=== PATIENT | female | born 1950 | race Caucasian/White ===

== ENCOUNTER 2016-12-16 19:00 | Emergency (ER) | payer MEDICARE, OTHER ==
[~2016-12-16] VITALS: Ht 162.6 cm; Wt 74.5 kg
[~2016-12-16 19:00] MED LIST: ALPR0.25 PO; SERT25TA83 PO; SMV40T PO; VALS320T11 PO; ZOLP10TA PO
[2016-12-16 19:07] VITALS: Ht 162.6 cm; Wt 74.5 kg
--- NOTE | 2016-12-16 21:27 | ERA ---
ER Documentation Chief Complaint Date/Time DATE: 12/16/16 TIME: 21:27 Chief Complaint epigastric pain x 5 days HPI The patient is a 66-year-old female, presenting to the ER because of epigastric abdominal pain radiating up to the sternal area for the last 5 days, associated with eating. She has similar symptoms previously, denies fever, chills, neck pain, chest pain, dyspnea, nausea, vomiting, dysuria, diarrhea. She does not smoke nor drink Past medical history: Dyslipidemia, anxiety, hypertension, gastritis, GERD, depression Past surgical history: None ROS All systems reviewed and are negative except as per history of present illness. Medications Home Meds Active Scripts Pantoprazole* (Protonix*) 40 Mg Tablet.dr, 40 MG PO DAILY, #20 TAB Prov:DINA JONES MD 12/16/16 Reported Medications Zolpidem Tartrate* (Ambien*) 10 Mg Tablet, 10 MG PO HS Y 01/29/13 Simvastatin (Simvastatin) 40 Mg Tablet, 40 MG PO DAILY 01/29/13 Alprazolam* (Xanax*) 0.25 Mg Tablet, 0.25 MG PO DAILY Y 01/29/13 Sertraline Hcl* (Sertraline Hcl*) 25 Mg Tablet, 25 MG PO DAILY 01/29/13 Valsartan* (Diovan*) 320 Mg Tablet, 320 MG PO DAILY 01/29/13 Allergies Allergies: Coded Allergies: No Known Allergies (Verified Allergy, Unknown, 01/29/13) PMhx/Soc History of Surgery: No Anesthesia Reaction: No Hx Neurological Disorder: No Hx Respiratory Disorders: No Hx Cardiac Disorders: Yes (htn, cholesterol) Hx Psychiatric Problems: No Hx Miscellaneous Medical Probl: No Hx Alcohol Use: No Hx Substance Use: No Hx Tobacco Use: No Physical Exam Vitals Vital Signs Date Time Temp Pulse Resp B/P Pulse Ox O2 Delivery O2 Flow Rate FiO2 12/16/16 22:01 97.8 75 20 108/78 100 Room Air 12/16/16 19:07 97.8 91 20 142/78 100 Physical Exam Const: No acute distress. Head: Atraumatic. Eyes: Normal Conjunctiva. ENT: Normal External Ears, Nose and Mouth. Neck: Full range of motion. No meningismus. Resp: Clear to auscultation bilaterally. Cardio: Regular rate and rhythm, no murmurs. Abd: Soft, non distended, normal bowel sounds, mild right upper quadrant and epigastric tenderness, no right lower quadrant, rigidity, rebound, CVA tenderness Skin: No petechiae or rashes. Back: No midline or flank tenderness. Ext: No cyanosis, or edema. Neur: Awake and alert. No focal deficit Psych: Normal Mood and Affect. Result Diagram: 12/16/16212812/16/162128 Results 24 hrs Laboratory Tests Test 12/16/16 21:29 12/16/16 21:31 White Blood Count 8.410^3/ul Red Blood Count 4.7310^6/ul Hemoglobin 13.9g/dl Hematocrit 42.0% Mean Corpuscular Volume 88.8fl Mean Corpuscular Hemoglobin 29.4pg Mean Corpuscular Hemoglobin Concent 33.1g/dl Red Cell Distribution Width 13.0% Platelet Count 65287^3/UL Mean Platelet Volume 11.9fl Neutrophils % 43.0% Lymphocytes % 45.3% Monocytes % 8.7% Eosinophils % 2.6% Basophils % 0.2% Nucleated Red Blood Cells % 0.0/100WBC Neutrophils # 3.610^3/ul Lymphocytes # 3.810^3/ul Monocytes # 0.710^3/ul Eosinophils # 0.210^3/ul Basophils # 0.010^3/ul Nucleated Red Blood Cells # 0.010^3/ul Sodium Level 137mmol/L Potassium Level 3.4mmol/L Chloride Level 96mmol/L Carbon Dioxide Level 27mmol/L Anion Gap 17 Blood Urea Nitrogen 13mg/dl Creatinine 0.67mg/dl Glucose Level 133mg/dl Calcium Level 9.6mg/dl Total Bilirubin 0.3mg/dl Direct Bilirubin 0.00mg/dl Indirect Bilirubin 0.3mg/dl Aspartate Amino Transf (AST/SGOT) 27IU/L Alanine Aminotransferase (ALT/SGPT) 43IU/L Alkaline Phosphatase 93IU/L Total Protein 8.1g/dl Albumin 4.6g/dl Globulin 3.50g/dl Albumin/Globulin Ratio 1.31 Lipase 40U/L Bedside Urine pH (LAB) 6.5 Bedside Urine Protein (LAB) Negative Bedside Urine Glucose (UA) Negative Bedside Urine Ketones (LAB) Negative Bedside Urine Blood Negative Bedside Urine Nitrite (LAB) Negative Bedside Urine Leukocyte Esterase (L Negative Current Medications Medications (Trade) Dose Ordered Sig/[place] Route PRN Reason Start Time Stop Time Status Last Admin Dose Admin Morphine Sulfate (morphine) 2 mg ONCE STAT IV 12/16/16 21:33 12/16/16 21:35 DC 12/16/16 21:41 Ondansetron HCl (Zofran Inj) 4 mg ONCE STAT IV 12/16/16 21:33 12/16/16 21:35 DC 12/16/16 21:40 Pantoprazole (Protonix Iv) 40 mg ONCE ONCE IV 12/16/16 22:00 12/16/16 22:01 DC 12/16/16 21:40 Potassium Chloride 20 meq 20 meq ONCE ONCE PO 12/16/16 22:56 12/16/16 22:57 DC Sodium Chloride (NS) 1,000 ml @ 1,000 mls/hr Q1H ONCE IV 12/16/16 23:00 12/16/16 23:59 Procedures/MDM MEDICAL MAKING DECISION: The patient is a 66-year-old female, presenting to the ER because of epigastric abdominal pain of unclear etiology, acute hypokalemia. Gallbladder ultrasound is unremarkable. She was treated with morphine 2 mg IV for pain, Zofran 4 mg IV for nausea, Protonix 40 mg IV for epigastric abdominal pain and potassium chloride 20 mEq p.o. for low potassium and 1 L normal saline for clinical dehydration with good response The radiologist gallbladder ultrasound reading is pending Departure Diagnosis: Primary Impression: Epigastric pain Additional Impression: Hypokalemia Condition: Good Comments She was discharged with Protonix I discussed the findings with the patient. I advised the patient to follow-up with the primary physician in about 1-2 days, sooner if needed and return if any concern. The patient's blood pressure was elevated (>120/80) but appears stable without evidence of hypertension emergency or urgency. The patient was counseled about the risks of hypertension and urged to pursue outpatient monitoring and therapy within a week with their primary care physician. DINA JONES MD December 16, 2016 21:27
[2016-12-16 21:30] LABS: URINE BLOOD (Dip) POC Negative (NEGATIVE)
[2016-12-16] MEDS ORDERED: morphine 2 MG INJ IV STA (21:33)
[2016-12-16] MEDS ORDERED: ONDANSETRON 4 MG INJ IV STA (21:33)
[2016-12-16 21:45] LABS: ADD SCAN DIFF NO
[2016-12-16 21:48] LABS: BASOPHILS % 0.2 % (0.0-2.0); EOSINOPHILS # 0.2 10^3/ul (0.0-0.5); EOSINOPHILS % 2.6 % (0.0-7.0); HEMOGLOBIN 13.9 g/dl (12.0-16.0); LYMPHOCYTES # 3.8 10^3/ul (0.8-2.9); LYMPHOCYTES % 45.3 % (15.0-51.0); MEAN CORPUSCULAR HEMOGLOBIN 29.4 pg (29.0-33.0); MEAN CORPUSCULAR HGB CONC 33.1 g/dl (32.0-37.0); MEAN CORPUSCULAR VOLUME 88.8 fl (82.0-101.0); MEAN PLATELET VOLUME 11.9 fl (7.4-10.4); MONOCYTE # 0.7 10^3/ul (0.3-0.9); MONOCYTES % 8.7 % (0.0-11.0); NEUTROPHIL # 3.6 10^3/ul (1.6-7.5); PLATELET COUNT 264 10^3/UL (140-415); RED BLOOD COUNT 4.73 10^6/ul (4.20-5.40); WHITE BLOOD COUNT 8.4 10^3/ul (4.8-10.8)
[2016-12-16] MEDS ORDERED: PANTOPRAZOLE 40 MG INJ IV ONE (22:00)
[2016-12-16 22:01] VITALS: TEMP 97.8
[2016-12-16 22:06] LABS: ALBUMIN 4.6 g/dl (3.3-4.9)
[2016-12-16 22:07] LABS: POTASSIUM 3.4 mmol/L (3.5-5.1)
[2016-12-16 22:09] LABS: ALBUMIN/GLOBULIN RATIO 1.31; BILIRUBIN,INDIRECT 0.3 mg/dl (0-1.1); BILIRUBIN,TOTAL 0.3 mg/dl (0.2-1.3); CREATININE 0.67 mg/dl (0.44-1.00); TOTAL PROTEIN 8.1 g/dl (6.1-8.1)
[2016-12-16 22:10] LABS: CALCIUM 9.6 mg/dl (8.4-10.2)
[2016-12-16] MEDS ORDERED: POTASSIUM CHLORIDE (SR) 20 MEQ TAB PO ONE (22:56)
[2016-12-16] MEDS ORDERED: SOD CHLORIDE 0.9% 1,000 ML IV ONE (23:00)
[2016-12-16] MEDS ORDERED: PANT40TA3 PO (23:15)
--- NOTE | 2016-12-16 23:25 | RADRPT ---
PROCEDURE: ULTRASOUND LIMITED ABDOMEN CLINICAL INDICATION: 66-year-old female with abdominal pain. TECHNIQUE: Multiple sonographic of the right upper quadrant of the abdomen were obtained. The imag es were reviewed on a PACS workstation. COMPARISON: None. FINDINGS: The pancreas is partially visualized and is otherwise without abnormal echogenicity. The liver displays diffuse increased echogenicity consistent with fatty infiltration The liver measu res 17.0 cm in length. No evidence of intrahepatic biliary ductal dilatation is seen. The portal an d hepatic veins are unremarkable. The gallbladder demonstrates no wall thickening, sludge, nor stones. No pericholecystic fluid is see n. The common bile duct measures 2.5 mm and is not dilated. The right kidney displays normal echogenicity. The right kidney measures 9.9 cm in maximal length. N o caliectasis or hydronephrosis is seen. No free fluid is seen. IMPRESSION: Diffuse fatty infiltration of the liver. .Michael Enriquez MD, MD Date Time Electronically viewed and signed by .Michael Enriquez MD, on 12/16/2016 23:25 .M/
[2016-12-17 00:33] VITALS: BP 137/89; PULSE 58; RESP 18
== END 2016-12-17 00:36 | disposition home or self-care (01) ==
LOC: E/R 19:00
DX: R10.13 Epigastric pain (principal); E87.6 Hypokalemia; I10 Essential (primary) hypertension
CPT/HCPCS: 36415; 76705; 80053; 81003; 83690; 85025; 96374; 96375; 99285; C9113; J2270; J2405; J7030